=== PATIENT | female | born 1960 | race Caucasian/White ===

== ENCOUNTER 2025-02-15 19:51 | Emergency (ER) | payer MEDICARE, SELFPAY ==
[2025-02-15 20:04] VITALS: BP 154/88
[2025-02-15 20:46] VITALS: BP 136/81
[2025-02-15 20:57] LABS: % Basophils 0.6 % (0-2); % Immature Granulocytes 0.3 % (0-0.5); % Lymphocytes 46.9 % (20.5-51.1); % Monocytes 11.6 % (1.7-9.3); % Neutrophils 39.6 % (42.2-75.2); Absolute Eosinophils 0.1 10^3/uL (0-0.7); Absolute Lymphocytes 2.9 10^3/uL (1.2-3.4); Absolute Monocytes 0.7 10^3/uL (0.1-0.6); Absolute Neutrophils 2.5 10^3/uL (1.4-6.5); Hemoglobin 13.6 g/dL (12.0-16.0); Mean Corpuscular Hgb 33.3 pg (27.0-31.0); Mean Corpuscular Volume 97.8 fL (81.0-99.0); Mean Platelet Volume 9.9 fL (7.4-10.4); Nucleated Red Blood Cells % 0 %; Platelet Count 315 10^3/uL (130-400); Red Blood Cell Count 4.09 10^6/uL (4.20-5.40); White Blood Cell Count 6.2 10^3/uL (4.8-10.8)
[2025-02-15 21:00] VITALS: BP 128/77
[2025-02-15 21:10] LABS: ALT (SGPT) 32 U/L (0-35); AST (SGOT) 34 U/L (14-36); Albumin 4.9 g/dl (3.5-5.0); Alkaline Phosphatase 33 U/L (38-126); Blood Urea Nitrogen 13 mg/dl (7-17); Calcium 10.2 mg/dl (8.4-10.2); Carbon Dioxide 31 mmol/L (22-30); Chloride 104 mmol/L (98-107); Glucose 107 mg/dl (70-99); Potassium 4.2 mmol/L (3.5-5.1); Sodium 141 mmol/L (135-145); Total Bilirubin 0.3 mg/dl (0.2-1.3); Total Protein 7.5 g/dl (6.3-8.2); eGFR > 60.00
--- NOTE | 2025-02-15 21:12 | ED.GENMED ---
History of Present Illness
General
Chief Complaint: Visual Problem
Time Seen by Provider: 02/15/25 20:50
History of Present Illness
History of Present Illness:
64-year-old woman with history of migraines with aura presenting to the emergency department with migraines. Patient states that she usually has 1 or few headaches a week. Today she had 3 headaches in 1 day. They are her typical migraines. They
all had her visual aura which is bright lights and flashing lights. It last for about 20 minutes and then she has a dull headache. Her last migraine was shortly before arrival. She does have a residual headache currently. She is not on any
abortive therapy. She does not see neurology. She did not take any medicines prior to arrival. She does not know her triggers of migraines. No falls. No traumatic injuries. No numbness tingling. No weakness. No speech changes during the
event.
Phy Exam
Physical Exam
Physical Exam:
GENERAL: in no acute distress
HEENT: normocephalic, extraocular movements intact, moist oral mucosa
NECK: normal inspection
RESPIRATORY: no respiratory distress, clear to auscultation bilaterally
CARDIOVASCULAR: regular rate and rhythm
ABDOMEN/: soft, non-distended, non-tender to palpation, no rebound or guarding
EXTREMITIES: non-tender, no edema/swelling
NEUROLOGIC: alert and oriented x 3, cranial nerves II-XII intact, right upper extremity strength 5/5, left upper extremity strength 5/5, right lower extremity strength 5/5, left lower extremity strength 5/5, normal sensation to light touch, normal
[id number] and [id number], gait not tested formally
SKIN: warm
Course
Orders/Labs/Results
Orders:
Orders
02/15/25 20:50
CMP [Comprehensive Metabolic Panel] Urgent
Complete Blood Count/With Diff Urgent
02/15/25 21:11
CT Head W/o Iv Contrast Urgent
Comment:
Reason For Exam: migraine with aura, inc freq
Acetaminophen [Tylenol] 650 mg PO NOW STA
Diphenhydramine [Benadryl] 12.5 mg IV NOW STA
Metoclopramide [Reglan] 10 mg IV NOW STA
Abnormal Lab Results
02/15/25
20:50
RBC 4.09 L 10^6/uL
(4.20-5.40)
MCH 33.3 H pg
(27.0-31.0)
Absolute Monos (auto) 0.7 H 10^3/uL
(0.1-0.6)
Neutrophils % 39.6 L %
(42.2-75.2)
Monocytes % 11.6 H %
(1.7-9.3)
Carbon Dioxide 31 H mmol/L
(22-30)
Glucose 107 H mg/dl
(70-99)
Alkaline Phosphatase 33 L U/L
(38-126)
02/15/25 20:50
02/15/25 20:50
Vital Signs
Initial and Last Documented VS:
Initial Vital Signs
Temp Pulse Resp BP Pulse Ox
98.5 F 85 16 154/88 99
02/15/25 20:04 02/15/25 20:04 02/15/25 20:04 02/15/25 20:04 02/15/25 20:04
Last Documented Vital Signs
Temp Pulse Resp BP Pulse Ox
98.5 F 75 17 112/74 97
02/15/25 20:04 02/15/25 22:15 02/15/25 22:15 02/15/25 22:00 02/15/25 22:15
MDM/Problems Addressed
Differential Diagnosis Includes:
Patient is a 64-year-old woman with history of migraine with visual aura presenting to the emergency department with her usual migraine though it is increasing frequency. Vitals are notable for being afebrile and exam shows no neurodeficits.
Likely migraine. History and exam suggest subarachnoid hemorrhage be less likely. She is afebrile with no neurodeficits and no neck stiffness to suggest meningitis. Given the increase in frequency after shared decision making we will proceed with
CT scan of the head. Will give migraine cocktail for the residual headache that she is having currently and to hopefully prevent any further episodes. Patient advised to create a headache journal as well as make an appointment with neurology.
*Critical Care Note
Total Time (30-74mins, 75-104mins- exclusive of procedures): Not Applicable
Update Note
Update Note:
CT scan of the head per my interpretation with no acute abnormality. Patient's headache has not recurred since she has been here. Will discharge patient at this time with outpatient follow-up.
ED Attending Note
-
Portions of this chart may have been created with voice recognition software.� Occasional wrong word or��sound alike� substitutions may have occurred due to the inherent limitations of voice recognition software.
Discharge Plan
Departure
Patient Disposition: Home (Routine Discharge)
Date of Disposition: 02/15/25
Time of Disposition: 22:53
Patient with high blood pressure during this ER visit?: No
Discharge Problem:
Migraine with aura
Instructions: Migraines (DC)
Referrals:
Palak Portillo MD [Non-Admitting Privileges, Psychiatry] - Call in 1-3 days for appt
Discharge Problem: Migraine with aura
Shanti Gilman CRNP [Family Provider]
Activity Restrictions/Additional Instructions:
You were seen in the Emergency Department today for a migraine. While you were here we performed blood work and a CT scan, which was reassuring. Please make sure you keep a headache journal as discussed. Please call the neurologist above to
schedule an appointment for further testing and treatment options.
We would like for you to follow up with your primary care physician for further evaluation. If you experience fever, worsening of your symptoms, or develop any other new or concerning symptoms, please return to the Emergency Department immediately.
Please see the attached sheet for additional information.
Interventions
Interventions:
*Risk Screen - Suicide Last Done: 02/15/25 20:04
*General Assessment Last Done: 02/15/25 20:47
*Neglect/Abuse Screening Last Done: 02/15/25 20:04
*ED- Fall Risk Assessment Last Done: 02/15/25 20:47
*ED COVID-19 Vaccine History Last Done: 02/15/25 20:47
ED- Neurological Assessment Last Done: 02/15/25 20:47
ED-EENT Assessment Last Done: 02/15/25 20:47
ED Swallowing Screen Last Done: 02/15/25 21:15
Discharge Date and Time
Print Language: RUSSIAN
[2025-02-15] MEDS: REGLAN 10 MG IV (21:20)
[2025-02-15] MEDS: BENADRYL 12.5 MG IV (21:20)
[2025-02-15] MEDS: TYLENOL 650 MG PO (21:21)
[2025-02-15 22:00] VITALS: BP 112/74
[2025-02-15 23:02] VITALS: BP 111/71
== END 2025-02-15 23:06 | disposition home or self-care (01) ==
LOC: EMR 19:51
PROVIDERS: EMERGENCY PHYSICIAN Student in an Organized Health Care Education/Training Program; FAMILY PHYSICIAN Nurse Practitioner Family
DX: G43.109 Migraine with aura, not intractable, without status migrainosus (principal)
CPT/HCPCS: 96374; 96375; 99284; 70450; 80053; 85025